=== PATIENT | male | born 1945 | race Two or more races ===

== ENCOUNTER 2025-06-23 22:10 | Inpatient (IN) | payer MEDICARE, OTHER ==
[~2025-06-23] VITALS: Ht 162.6 cm; Wt 101.6 kg
[2025-06-23] MEDS ORDERED: VANCOMYCIN 1000 MG VIAL ONE (23:16)
[2025-06-23 23:24] LABS: PLATELET COUNT (AUTO) 177 K/uL (152-348); RED BLOOD CELL COUNT(AUTO) 4.19 MIL/uL (4.06-5.63); RED CELL DISTRIBUTION WIDTH 14.5 % (12.1-16.2); WHITE BLOOD COUNT (AUTO) 8.0 K/uL (3.6-10.2)
[2025-06-23 23:31] LABS: CREATININE 1.9 mg/dL (0.6-1.3); SODIUM SERUM 137 mmol/L (136-145); UREA NITROGEN, BLOOD 32 mg/dL (7-18)
[2025-06-23] MEDS ORDERED: AMOX1TAB16 PO (23:36)
[2025-06-23] MEDS ORDERED: TAMS-3 PO (23:36)
[2025-06-23 23:37] LABS: ASPARTATE AMINOTRANSFERASE 18 U/L (15-37); TOTAL PROTEIN, SERUM 6.7 g/dL (6.4-8.2)
[2025-06-23] MEDS: VANCOMYCIN IV 1,000 MG in IV DEXTROSE 5% 250 ML IV ONE (23:48)
[2025-06-24] MEDS ORDERED: REMEDY ESSENTIAL ZINC PASTE 113 GM TP PRN (01:00)
[2025-06-24] MEDS ORDERED: ACETAMINOPHEN 325 MG TABLET PO PRN (01:00)
[2025-06-24] MEDS ORDERED: ONDANSETRON 4 MG/2 ML VIAL IV PRN (01:00)
[2025-06-24] MEDS ORDERED: DEXTROSE 50% 50 ML DISP.SYRIN IV PRN (01:00)
[2025-06-24 02:00] VITALS: BP 120/88
[2025-06-24 05:38] VITALS: BP 152/65; TEMP 98; O2SAT 93
[2025-06-24] MEDS: PANTOPRAZOLE SODIUM 40 MG TABLET.DR PO SCH (06:19)
[2025-06-24] MEDS: BLOOD SUGAR DIAGNOSTIC 1 EACH STRIP VI SCH (06:19)
[2025-06-24] MEDS ORDERED: TAMSULOSIN HCL 0.4 MG CAP.SR.24H PO SCH (09:00)
[2025-06-24] MEDS: ENOXAPARIN SODIUM 40 MG/0.4 ML DISP.SYRIN SQ SCH (09:40)
[2025-06-24 10:18] LABS: CREATININE 1.7 mg/dL (0.6-1.3); SODIUM SERUM 143 mmol/L (136-145); UREA NITROGEN, BLOOD 26 mg/dL (7-18)
[2025-06-24 11:08] VITALS: BP 145/80; TEMP 98.2; O2SAT 95
[2025-06-24] MEDS: MAGNESIUM OXIDE 400 MG TABLET PO ONE (12:03)
[2025-06-24] MEDS: VANCOMYCIN HCL 750 MG in IV DEXTROSE 5% 250 ML IV ONE (12:03)
[2025-06-24] MEDS: INSULIN REGULAR, HUMAN 1000 UNIT/10 ML VIAL SQ PRN (12:31)
[2025-06-24 14:14] LABS: *CREATININE,URINE 72.5 mg/dL (30-125); *SODIUM RNDM,URINE 127.0 mmol/L (40-220); *URINE TOTAL PROTEIN RANDOM 97.8 mg/dL (<150/24HR)
[2025-06-24 14:23] LABS: *BILIRUBIN,URIN NEGATIVE (NEGATIVE); *CLARITY,URINE CLEAR (CLEAR); *COLOR,URINE YELLOW (YELLOW); *KETONES,URINE NEGATIVE (NEGATIVE); *PROTEIN,URINE 2+ (NEGATIVE); *UROBILINOGEN,URINE 0.2 E.U./dl (NORMAL); LEUKOCYTE ESTERASE ,URINE NEGATIVE (NEGATIVE); NITRITE, URINE NEGATIVE (NEGATIVE); UGLUCOSE TRACE (NEGATIVE)
[2025-06-24 14:25] LABS: *BLOOD, URINE TRACE (NEGATIVE)
[2025-06-24 15:22] VITALS: BP 156/65; TEMP 97.7; O2SAT 95
[2025-06-24] MEDS ORDERED: FINA5TAB11 PO (15:50)
[2025-06-24] MEDS ORDERED: POTA-10 PO (15:50)
[2025-06-24] MEDS ORDERED: BUME1TAB8 PO (15:50)
[2025-06-24] MEDS ORDERED: DAPA10TA PO (15:50)
[2025-06-24] MEDS ORDERED: CARV25TA2 PO (15:50)
[2025-06-24] MEDS ORDERED: AMLO-212 PO (15:50)
[2025-06-24] MEDS: MEDIHONEY= THERAHONEY 1.5 OZ TUBE TOP SCH (16:53)
[2025-06-24 19:00] VITALS: BP 150/77; TEMP 98.5; O2SAT 97
[2025-06-24] MEDS: TAMSULOSIN HCL 0.4 MG CAP.SR.24H PO SCH (20:25)
[2025-06-24] MEDS: DOCUSATE SODIUM 100 MG CAPSULE PO SCH (20:25)
[2025-06-24] MEDS: HYDROCODONE/APAP 5-325MG TABLET PO PRN (20:26)
[2025-06-25 06:24] VITALS: BP 153/76; TEMP 98.5; O2SAT 97
[2025-06-25 07:34] LABS: PLATELET COUNT (AUTO) 157 K/uL (152-348); RED BLOOD CELL COUNT(AUTO) 4.09 MIL/uL (4.06-5.63); RED CELL DISTRIBUTION WIDTH 14.2 % (12.1-16.2); WHITE BLOOD COUNT (AUTO) 7.0 K/uL (3.6-10.2)
[2025-06-25 08:05] LABS: ASPARTATE AMINOTRANSFERASE 11 U/L (15-37); CREATINE KINASE, TOTAL 46 U/L (39-308); CREATININE 1.6 mg/dL (0.6-1.3); SODIUM SERUM 143 mmol/L (136-145); TOTAL PROTEIN, SERUM 6.2 g/dL (6.4-8.2); UREA NITROGEN, BLOOD 25 mg/dL (7-18)
[2025-06-25] MEDS: PIPERACILLIN SODIUM/TAZOBACTAM 3.375 G in IV DEXTROSE 5% 50 ML IV ONE (08:35)
[2025-06-25] MEDS: CARVEDILOL 25 MG TABLET PO SCH (09:31)
[2025-06-25] MEDS: VANCOMYCIN IV 1,000 MG in IV DEXTROSE 5% 250 ML IV ONE (09:31)
[2025-06-25] MEDS: MAGNESIUM OXIDE 400 MG TABLET PO ONE (11:20)
[2025-06-25 11:38] VITALS: BP 137/65; TEMP 98.4; O2SAT 96
[2025-06-25] MEDS: PIPERACILLIN SODIUM/TAZOBACTAM 3.375 G in IV DEXTROSE 5% 50 ML IV SCH (14:09)
[2025-06-25 15:35] VITALS: BP 130/66; TEMP 97.6; O2SAT 96
[2025-06-25 19:53] VITALS: BP 99/46; TEMP 97.5; O2SAT 97
[2025-06-26 06:07] LABS: PTH, INTACT 26 pg/mL (15-65)
[2025-06-26 06:38] VITALS: BP 150/70; TEMP 97.5; O2SAT 97
[2025-06-26 06:53] LABS: PLATELET COUNT (AUTO) 152 K/uL (152-348); RED BLOOD CELL COUNT(AUTO) 4.07 MIL/uL (4.06-5.63); RED CELL DISTRIBUTION WIDTH 14.1 % (12.1-16.2); WHITE BLOOD COUNT (AUTO) 6.9 K/uL (3.6-10.2)
[2025-06-26 07:22] LABS: CREATININE 2.0 mg/dL (0.6-1.3); SODIUM SERUM 140 mmol/L (136-145); UREA NITROGEN, BLOOD 30 mg/dL (7-18)
[2025-06-26] MEDS: MAGNESIUM OXIDE 400 MG TABLET PO ONE (09:42)
[2025-06-26 11:45] VITALS: BP 114/52; TEMP 97.6; O2SAT 98
[2025-06-26] MEDS: VANCOMYCIN IV 1,000 MG in IV DEXTROSE 5% 250 ML IV ONE (13:01)
[2025-06-26 15:46] VITALS: BP 136/79; TEMP 97.6; O2SAT 97
[2025-06-26 19:51] VITALS: BP 142/40; TEMP 97.8; O2SAT 97
[2025-06-27 05:30] VITALS: BP 142/63; TEMP 99; O2SAT 95
[2025-06-27 06:39] LABS: PLATELET COUNT (AUTO) 150 K/uL (152-348); RED BLOOD CELL COUNT(AUTO) 3.96 MIL/uL (4.06-5.63); RED CELL DISTRIBUTION WIDTH 13.9 % (12.1-16.2); WHITE BLOOD COUNT (AUTO) 5.8 K/uL (3.6-10.2)
[2025-06-27 07:00] LABS: ASPARTATE AMINOTRANSFERASE 9 U/L (15-37); CREATININE 2.0 mg/dL (0.6-1.3); SODIUM SERUM 141 mmol/L (136-145); TOTAL PROTEIN, SERUM 6.6 g/dL (6.4-8.2); UREA NITROGEN, BLOOD 31 mg/dL (7-18)
[2025-06-27] MEDS ORDERED: VANCOMYCIN HCL 750 MG in IV DEXTROSE 5% 250 ML IV ONE (10:00)
[2025-06-27] MEDS: MAGNESIUM OXIDE 400 MG TABLET PO ONE (10:29)
[2025-06-27 15:42] VITALS: BP 148/65; TEMP 97.8; O2SAT 97
[2025-06-27] MEDS ORDERED: DOXY100T2 PO (16:07)
[2025-06-27] MEDS ORDERED: ACID1TAB4 PO (16:07)
[2025-06-27] MEDS ORDERED: TAMS-3 PO (16:07)
[2025-06-27] MEDS ORDERED: PANT40TA49 PO (16:07)
[2025-06-27] MEDS ORDERED: PIPERACILLIN SODIUM/TAZOBACTAM 3.375 G in IV DEXTROSE 5% 100 ML IV SCH (17:00)
[2025-06-27] MEDS ORDERED: DOXYCYCLINE HYCLATE 100 MG TABLET PO SCH (18:00)
== END 2025-06-27 17:15 | disposition home health service (06) | DRG 602 ==
LOC: ER 22:23 → MEDSURG3 06-24 00:30
PROVIDERS: ADMIT Registered Nurse Psychiatric/Mental Health; ATTEND Internal Medicine
DX: L03.115 Cellulitis of right lower limb (principal); N17.0 Acute kidney failure with tubular necrosis; I13.0 Hypertensive heart and chronic kidney disease with heart failure and stage 1 through stage 4 chronic kidney disease, or unspecified chronic kidney disease; I50.32 Chronic diastolic (congestive) heart failure; D68.59 Other primary thrombophilia; S80.811A Abrasion, right lower leg, initial encounter; W10.9XXA Fall (on) (from) unspecified stairs and steps, initial encounter; Y92.89 Other specified places as the place of occurrence of the external cause; E11.40 Type 2 diabetes mellitus with diabetic neuropathy, unspecified; E11.51 Type 2 diabetes mellitus with diabetic peripheral angiopathy without gangrene; I70.201 Unspecified atherosclerosis of native arteries of extremities, right leg; E66.9 Obesity, unspecified; Z68.38 Body mass index [BMI] 38.0-38.9, adult; Z91.148 Patient's other noncompliance with medication regimen for other reason; Z95.1 Presence of aortocoronary bypass graft; E78.5 Hyperlipidemia, unspecified; N40.0 Benign prostatic hyperplasia without lower urinary tract symptoms; N18.9 Chronic kidney disease, unspecified; Z86.718 Personal history of other venous thrombosis and embolism; I25.10 Atherosclerotic heart disease of native coronary artery without angina pectoris; E83.42 Hypomagnesemia; Z87.891 Personal history of nicotine dependence; Z74.09 Other reduced mobility; E11.22 Type 2 diabetes mellitus with diabetic chronic kidney disease; Z83.79 Family history of other diseases of the digestive system
CPT/HCPCS: 36415; 71045; 73590; 76770; 83735; 83970; 84100; 84155; 84165; 84300; 84443; 85025; 87040; 93005; A4606; A4663; A6209; G0378; J0360; J1650; J2543; J3373; J7050; J7060